=== PATIENT | female | born 1960 | race African-American/Black ===

== ENCOUNTER 2018-06-29 06:24 | Day surgery (SDC) | payer OTHER ==
[~2018-06-29] VITALS: Ht 172.7 cm; Wt 86.2 kg
[~2018-06-29 06:24] MED LIST: BUPIVAC MPF-EPI 0.5%-1:200000 30 ML VIAL. ONE
[2018-06-29] MEDS ORDERED: IBUP-1007 PO (06:59)
[2018-06-29] MEDS ORDERED: FLUT9.9S NS (06:59)
[2018-06-29] MEDS ORDERED: PROCHLORPERAZINE 10 MG/2 ML VIAL. IV PRN (07:00)
[2018-06-29] MEDS ORDERED: fentaNYL PF VIAL 100 MCG/2 ML VIAL IV PRN (07:00)
[2018-06-29] MEDS ORDERED: MORPHINE SULFATE 2 MG/ML VIAL. IV PRN (07:00)
[2018-06-29] MEDS ORDERED: HYDROmorphone 2 MG/ML VIAL IV PRN (07:00)
[2018-06-29] MEDS ORDERED: ACET325T9 PO (07:00)
[2018-06-29] MEDS ORDERED: IV RINGERS,LACTATED 1000ML 1,000 ML IV SCH (07:00)
[2018-06-29] MEDS ORDERED: LIDOCAINE 1% PF 2 ML VIAL. ID PRN (07:00)
[2018-06-29] MEDS ORDERED: ONDANSETRON PF 4 MG/2 ML VIAL. IV PRN (07:00)
[2018-06-29] MEDS ORDERED: ONDANSETRON PF 4 MG/2 ML VIAL. ONE (07:46)
[2018-06-29] MEDS ORDERED: DEXAMETHASONE SOD PHOS 20 MG/5 ML VIAL. ONE (07:46)
[2018-06-29] MEDS ORDERED: MIDAZOLAM HCL/PF 2 MG/2 ML VIAL. ONE (07:46)
[2018-06-29] MEDS ORDERED: LIDOCAINE 2% PF 5 ML VIAL. ONE (07:46)
[2018-06-29] MEDS ORDERED: PROPOFOL 20 ML IV ONE (07:46)
[2018-06-29] MEDS ORDERED: fentaNYL PF VIAL 100 MCG/2 ML VIAL ONE ×2 (07:46→09:42)
[2018-06-29] MEDS ORDERED: ePHEDrine PF IN SALINE 50 MG/10 ML SYRINGE. IV ONE (08:22)
[2018-06-29] MEDS ORDERED: GLYCOPYRROLATE 1 MG/5 ML VIAL. ONE (08:28)
[2018-06-29] MEDS ORDERED: SEVOFLURANE 31 TO 60 MINUTES. IH ONE (08:34)
[2018-06-29] MEDS ORDERED: SEVOFLURANE 61 TO 120 MINUTES. IH ONE (08:45)
[2018-06-29] MEDS ORDERED: PHENYLEPHRINE in 0.9% NACL PF 1 MG/10 ML SYRINGE. IV ONE (09:03)
[2018-06-29] MEDS ORDERED: KETOROLAC 30 MG/ML INJ FOR OR. INJ ONE (09:03)
--- NOTE | 2018-06-29 09:38 | PDOC1 ---
History and Physical Date of Admission Date of Admission DATE: 06/29/18 TIME: 07:45 Identification/Chief Complaint Chief Complaint right inguinal fullnes Source Source: Chart review, Patient History of Present Illness History of Present Illness 58 yo inmate with right inguinal fullness, pain Past Medical History Cardiovascular: No pertinent hx Pulmonary: No pertinent hx Renal/: No pertinent hx Past Surgical History Past Surgical History: No pertinent history Family History Family History: No Significant Social History Smoke: No ALCOHOL: none Drugs: None Current Medications Current Medications Current Medications Ondansetron HCl (Zofran) 4 mg PRN Q6HRS PRN IV NAUSEA/VOMITING; Start 06/29/18 at 07:00; Stop 06/30/18 at 06:59 Fentanyl Citrate (Fentanyl 2ml Vial) 25 mcg PRN Q5MIN PRN IV MILD PAIN; Start 06/29/18 at 07:00; Stop 06/30/18 at 06:59 Fentanyl Citrate (Fentanyl 2ml Vial) 50 mcg PRN Q5MIN PRN IV MODERATE TO SEVERE PAIN; Start 06/29/18 at 07:00; Stop 06/30/18 at 06:59 Morphine Sulfate (Morphine Sulfate) 1 mg PRN Q10MIN PRN IV SEVERE PAIN; Start 06/29/18 at 07:00; Stop 06/30/18 at 06:59 Ringer's Solution 1,000 ml @ 30 mls/hr Q24H IV Last administered on 06/29/18at 07:03; Start 06/29/18 at 07:00; Stop 06/29/18 at 18:59 Lidocaine HCl (Xylocaine-Mpf 1% 2ml Vial) 2 ml PRN 1X PRN ID PRIOR TO IV START ; Start 06/29/18 at 07:00; Stop 06/30/18 at 06:59 Hydromorphone HCl (Dilaudid) 0.5 mg PRN Q10MIN PRN IV SEV PAIN, Second choice; Start 06/29/18 at 07:00; Stop 06/30/18 at 06:59 Prochlorperazine Edisylate (Compazine) 5 mg PACU PRN PRN IV NAUSEA, MRX1; Start 06/29/18 at 07:00; Stop 06/30/18 at 06:59 Levofloxacin/ Dextrose 100 ml @ 100 mls/hr 1X ONCE IV Last administered on at 07:58; Start 06/29/18 at 06:00; Stop 06/29/18 at 06:59; Status DC Bupivacaine HCl/ Epinephrine Bitart (Sensorcain-Mpf Epi 0.5%-1:[id number]) 30 ml STK -MED ONCE .ROUTE Last administered on 06/29/18at 08:28; Start 06/29/18 at 06:07 ; Stop 06/29/18 at 07:08; Status DC Propofol 20 ml @ As Directed STK-MED ONCE IV ; Start 06/29/18 at 07:46; Stop at 07:47; Status DC Dexamethasone Sodium Phosphate (Decadron) 20 mg STK-MED ONCE .ROUTE ; Start at 07:46; Stop 06/29/18 at 07:47; Status DC Lidocaine HCl (Lidocaine Pf 2% Vial) 5 ml STK-MED ONCE .ROUTE ; Start 06/29/18 at 07:46; Stop 06/29/18 at 07:47; Status DC Ondansetron HCl (Zofran) 4 mg STK-MED ONCE .ROUTE ; Start 06/29/18 at 07:46; Stop 06/29/18 at 07:47; Status DC Fentanyl Citrate (Fentanyl 2ml Vial) 100 mcg STK-MED ONCE .ROUTE ; Start at 07:46; Stop 06/29/18 at 07:47; Status DC Midazolam HCl (Versed) 2 mg STK-MED ONCE .ROUTE ; Start 06/29/18 at 07:46; Stop 06/29/18 at 07:47; Status DC Ephedrine Sulfate (ePHEDrine PF IN SALINE SYRINGE) 50 mg STK-MED ONCE IV ; Start 06/29/18 at 08:22; Stop 06/29/18 at 08:23; Status DC Glycopyrrolate (Robinul) 1 mg STK-MED ONCE .ROUTE ; Start 06/29/18 at 08:28; Stop 06/29/18 at 08:29; Status DC Sevoflurane (Ultane) 30 ml STK-MED ONCE IH ; Start 06/29/18 at 08:34; Stop 06/29 at 08:35; Status DC Sevoflurane (Ultane) 60 ml STK-MED ONCE IH ; Start 06/29/18 at 08:45; Stop 06/29 at 08:46; Status DC Ketorolac Tromethamine (Toradol For Or Only) 30 mg STK-MED ONCE INJ ; Start at 09:03; Stop 06/29/18 at 09:04; Status DC Phenylephrine HCl (PHENYLEPHRINE in 0.9% NACL PF) 1 mg STK-MED ONCE IV ; Start 06/29/18 at 09:03; Stop 06/29/18 at 09:04; Status DC Active Scripts Active Reported Tylenol (Acetaminophen) 325 Mg Tablet 1-2 Tab PO QID Flonase Allergy Relief (Fluticasone Propionate) 9.9 Ml [place].susp 2 Sprays NS DAILY Ibuprofen 600 Mg Tablet 600 Mg PO TID PRN PRN Allergies Allergies: Coded Allergies: Penicillins (Verified Allergy, Severe, Anaphylaxis, 06/29/18) Carbapenems (Verified Allergy, Intermediate, 06/29/18) Cephalosporins (Verified Allergy, Intermediate, 06/29/18) aztreonam (Verified Allergy, Intermediate, 06/29/18) peanut (Verified Allergy, Intermediate, 06/29/18) ROS Review of System negative with exception of present complaints Physical Exam General: Alert, Oriented X3, No acute distress HEENT: Atraumatic Lungs: Normal air movement Heart: RRR Abdomen: Soft Vitals Vitals Vital Signs Date Time Temp Pulse Resp B/P (MAP) Pulse Ox O2 Delivery O2 Flow Rate FiO2 06/29/18 06:55 98.1 65 18 150/87 98 Room Air 98.1 VTE Prophylaxis Ordered VTE Prophylaxis Devices: Yes VTE Pharmacological Prophylaxi: No Assessment/Plan Assessment/Plan right inguinal hernia repair explained risks including but not limited to bleeding, infection, recurrence, chronic pain he will proceed ROSEANNA CHAPMAN MD Jun 29, 2018 09:38
--- NOTE | 2018-06-29 09:42 | PDOC ---
BRIEF OPERATIVE NOTE Date: Jun 29, 2018 Pre-Op Diagnosis right inguinal hernia Post-Op Diagnosis same, indirect Procedure Performed repair with mesh Surgeon Terence Anesthesia Type: General (LMA) Blood Loss 10cc IV Fluid 1000cc Specimens Obtained none Findings large indirect hernia sack, adequate floor Complications none Operative Note # [id number] ROSEANNA CHAPMAN MD Jun 29, 2018 09:42
[2018-06-29] MEDS: fentaNYL PF VIAL 100 MCG/2 ML VIAL IV PRN ×2 (09:52→10:01)
--- NOTE | 2018-06-29 09:53 | OP ---
DATE OF SURGERY: 06/29/2018 PREOPERATIVE DIAGNOSIS: Right inguinal hernia. POSTOPERATIVE DIAGNOSIS: Right inguinal hernia, indirect. PROCEDURE: Repair with mesh. SURGEON: All Chapman MD ANESTHESIA: General LMA. ESTIMATED BLOOD LOSS: 10. INTRAVENOUS: 1 liter. INDICATIONS: The patient is a 58-year-old inmate with right inguinal fullness and pain, brought for repair. OPERATIVE FINDINGS: A large indirect hernia sac was identified. The inguinal floor was adequate. DESCRIPTION OF PROCEDURE: The patient was brought to the operating suite, given a general LMA, and the right groin prepped and draped in usual sterile fashion. A 0.5% Marcaine with epinephrine was used to infiltrate the skin and subcutaneous tissue along the incision line. Incision made and dissection carried down to the external oblique fascia. Bleeders were cauterized or tied as identified. The fascia was opened in the direction of its fibers, extended through the external ring. Cord was stripped off the pubis. A Rupa drain placed around it and dissection carried back to the internal ring where a large indirect sac was identified, skeletonized and reduced. This was held in reduction with an extra large plug of Phasix mesh, tacked with 2-0 PDS, taking care to avoid injury to adjacent vessels. A keyhole patch was fashioned and placed over the floor of the canal. A slit closed with a single 2-0 PDS stitch. When hemostasis was present and a correct sponge count obtained, the cord was returned to its normal anatomical position. External oblique fascia closed over a running fashion with 3-0 Vicryl. Subcutaneous approximated with 3-0 Vicryl, skin closed with a subcuticular 4-0 Monocryl. Steri-Strips and sterile dressing applied. Prior to emergence from anesthesia, digital rectal exam failed to reveal evidence of prostatic enlargement or nodularity. The patient was awakened from his anesthetic and taken to the recovery room in satisfactory condition. ALL CHAPMAN MD DR: MANUEL/[email or web address] JOB#: [id number] / [id number]
[2018-06-29] MEDS ORDERED: HYDROcodone/APAP 5/325MG 1 TAB TABLET PO ONE ×2 (10:15)
[2018-06-29 11:20] VITALS: BP 135/85
== END 2018-06-29 11:32 ==
LOC: SURG 06:24 → EEVIPCON 08:00 → SURG 11:32
PROVIDERS: ATTEND Surgery
DX: K40.90 Unilateral inguinal hernia, without obstruction or gangrene, not specified as recurrent (principal); Z88.0 Allergy status to penicillin; Z88.1 Allergy status to other antibiotic agents; Z91.010 Allergy to peanuts; Z88.8 Allergy status to other drugs, medicaments and biological substances; Z79.899 Other long term (current) drug therapy
CPT/HCPCS: 49505; A7015; C1781; J0171; J1100; J1885; J1956; J2001; J2250; J2370; J2405; J2704; J3010; J3490; J7120